=== PATIENT | male | born 1985 | race Caucasian/White ===

== ENCOUNTER 2018-09-16 11:50 | Outpatient (CLI) ==
--- NOTE | 2018-09-16 13:59 | US ---
EXAM: Thyroid ultrasound History: Thyroid goiter. Technique: Multiple sonographic images through the thyroid gland were obtained. Color duplex Dopple r was used to interrogate vascular flow. Findings: The right lobe of the thyroid measures 5.4 cm x 1.5 cm x 1.7 cm and demonstrates a 0.3 cm complex cys tic nodule. The thyroid isthmus measures 0.2 cm in thickness. The left lobe of the thyroid measures 4.9 cm x 1.8 cm x 1.8 cm and demonstrates a 0.5 cm complex cyst ic nodule. No extrathyroidal masses are identified. Thyroid gland is not hypervascular. Impression: Benign sub-centimeter bilateral cystic thyroid nodules.
--- NOTE | 2018-09-16 14:14 | MRI ---
EXAM: MRI left elbow without contrast. HISTORY: Left elbow pain. Medial level pain. Feels tendon popping on medial side. Third - fifth f ingers go numb. Pain for several months. No injury. No left elbow surgery. TECHNIQUE: Using a local extremity coil on a high field strength magnet multiplanar multisequence ma gnet resonance imaging performed of the left elbow without intravenous or intra-articular gadolinium contrast. A marker placed over the medial left elbow at the joint line in the patient's reported area of sympto matology.. FINDINGS: I do not have prior radiographs of the left elbow available for comparison at the time of this dictation. The alignment of the left elbow shows no dislocation or joint subluxations. Bone marrow signal inten sity left elbow shows no acute fracture, stress fracture or bone erosions. Physiologic amount of flu id left elbow joint. No large osteochondral loose bodies. Posterior distal triceps tendon intact wi th minimal tendinosis. No olecranon bursitis. Within the anterior compartment distal biceps brachii and brachialis tendon fibers intact. Within the medial compartment there is thickening with increased signal intensity to the common exten sor tendon origin with tiny area of insertional partial tear. Some proximal adjacent muscle strain. The ulnar nerve is located in expected position along the cubital tunnel and of normal morphology al beit there may be some increased T2 signal intensity to the nerve. The ulnar collateral ligament int act Within the lateral compartment the radial collateral ligament as well as lateral ulnar collateral lig ament and annular ligament intact. Thickening and increased signal intensity to the origin of the fl exor pronator wad with trace insertional fissuring/partial tear over the origin. Some posterior subc utaneous prominent vascularity. IMPRESSION: Medial epicondylitis with tiny area of insertional partial tear. Some proximal adjacent muscle strain. Ulnar nerve intact in expected position albeit there may be some increased T2 signal intensity to the nerve which may reflect associated ulnar neuritis. Correlate clinically. Lateral epicondylitis with trace insertional fissuring/partial tear over the origin. No acute fracture, stress fracture or bone erosions. No joint subluxations. No left elbow effusion or surrounding bursitis. Distal triceps minimal tendinosis.
== END 2018-09-16 11:51 | disposition home or self-care (01) ==
LOC: RAD 11:50
PROVIDERS: ATTEND Nurse Practitioner
DX: M25.522 Pain in left elbow (principal); E04.9 Nontoxic goiter, unspecified